=== PATIENT | female | born 1955 | race Two or more races ===

== ENCOUNTER 2019-08-17 14:43 | Inpatient (IN) | payer MEDICAID ==
[~2019-08-17] VITALS: Ht 162.6 cm; Wt 75.3 kg
[2019-08-17] MEDS ORDERED: METF-414 PO (14:57)
[2019-08-17] MEDS ORDERED: BUPR-43 PO (14:57)
[2019-08-17] MEDS ORDERED: LISI-648 PO (14:57)
[2019-08-17] MEDS ORDERED: ATEN-42 PO (14:57)
[2019-08-17] MEDS ORDERED: FAMO20TA8 PO (14:57)
[2019-08-17] MEDS ORDERED: ATOR40TA70 PO (14:57)
[2019-08-17 15:24] LABS: BASOPHILS % 1.1 % (0.0-2.0); EOSINOPHILS % 2.2 % (0.0-5.0); HEMATOCRIT. 42.9 % (36.0-48.0); HEMOGLOBIN. 14.4 g/dL (12.0-16.0); LYMPHOCYTES % 38.4 % (20.0-50.0); MEAN CORPUSCULAR HEMOGLOBIN 30.4 pg (28.0-32.0); MEAN CORPUSCULAR VOLUME 90.6 fL (81.0-99.0); MEAN PLATELET VOLUME 8.1 fl (7.4-10.4); MONOCYTES % 10.2 % (2.0-8.0); NEUTROPHILS % 48.1 % (40.0-76.0); PLATELET 251 x1000/uL (130-400); RED BLOOD CELL COUNT 4.74 mill/uL (4.2-5.4); RED CELL DISTRIBUTION WIDTH 15.2 % (11.6-14.6)
[2019-08-17 15:31] LABS: CHLORIDE 109 mEq/L (98-107)
[2019-08-17 15:35] LABS: ETHANOL BLOOD < 10 mg/dL
[2019-08-17] MEDS ORDERED: HYDRALAZINE 20MG/ML VIAL IV ONE (15:45)
[2019-08-17 18:10] LABS: CLARITY URINE CLEAR (CLEAR); COLOR URINE YELLOW (YELLOW); KETONES URINE NEGATIVE (NEGATIVE); LEUKOCYTE ESTERASE URINE NEGATIVE (NEGATIVE); NITRITE URINE NEGATIVE (NEGATIVE); OCCULT BLOOD URINE NEGATIVE (NEGATIVE); PROTEIN URINE TRACE (NEGATIVE); SPECIFIC GRAVITY URINE 1.018 (1.005-1.030); UROBILINOGEN URINE 0.2 E.U./dL (0.2-1.0)
[2019-08-17 18:44] LABS: *AMPHETAMINES SCREEN URINE NEGATIVE (NEGATIVE); *BARBITURATES SCREEN URINE NEGATIVE (NEGATIVE); *BENZODIAZEPINES SCREEN URINE NEGATIVE (NEGATIVE); *COCAINE SCREEN URINE PRESUMTIVE POSITIVE (NEGATIVE); CANNABINOID URINE SCREEN PRESUMTIVE POSITIVE (NEGATIVE); METHADONE URINE SCREEN NEGATIVE (NEGATIVE); OPIATES URINE SCREEN NEGATIVE (NEGATIVE); PHENCYCLIDINE URINE SCREEN NEGATIVE (NEGATIVE)
[2019-08-17] MEDS ORDERED: NITROGLYCERIN 0.4MG TABLET SL SL PRN (18:45)
[2019-08-17] MEDS ORDERED: ONDANSETRON HCL 4MG/2ML INJ IV PRN (18:45)
[2019-08-17] MEDS ORDERED: GUAIFENESIN 200MG/10ML SUGAR FREE UDC PO PRN (18:45)
[2019-08-17] MEDS ORDERED: ZOLPIDEM TARTRATE 5MG TABLET PO PRN (18:45)
[2019-08-17] MEDS ORDERED: LORAZEPAM 0.5MG TABLET PO PRN (18:45)
[2019-08-17] MEDS ORDERED: ACETAMINOPHEN 325MG TABLET PO PRN (18:45)
[2019-08-17] MEDS ORDERED: MAGNESIUM/ALUMINUM HYDROXIDE/SIMETHICONE 30ML UDC PO PRN (18:45)
[2019-08-17] MEDS ORDERED: IPRATROPIUM/ALBUTEROL 0.5-3(2.5)MG/3ML NEB NEB PRN (18:45)
[2019-08-17] MEDS ORDERED: DEXTROSE 50% WATER 50ML SYRINGE IV PRN (18:45)
[2019-08-17] MEDS ORDERED: CLONIDINE 0.1MG TABLET PO PRN (18:45)
[2019-08-17] MEDS ORDERED: DOCUSATE SODIUM 100MG CAPSULE PO PRN (18:45)
[2019-08-18] VITALS (7 sets, daily range): BP systolic 116–180; BP diastolic 64–88
[2019-08-18] MEDS: KETOROLAC 15MG/ML VIAL IV PRN ×2 (01:55→15:49)
[2019-08-18] MEDS ORDERED: VITA100T MT (03:39)
[2019-08-18] MEDS ORDERED: HYDR12.54 MT (03:39)
[2019-08-18] MEDS ORDERED: MAGN100T3 PO (03:39)
[2019-08-18] MEDS ORDERED: ATOR10TA MT (03:39)
[2019-08-18] MEDS: INSULIN LISPRO 100 UNITS/ML SUBCUT SCH ×4 (06:34→21:00)
[2019-08-18] MEDS: BLOOD SUGAR DIAGNOSTIC STRIP TEST SCH ×4 (06:34→21:00)
[2019-08-18] MEDS ORDERED: ASPIRIN 325MG EC TABLET PO SCH (09:00)
[2019-08-18] MEDS ORDERED: FAMOTIDINE 20MG TABLET PO SCH (09:00)
[2019-08-18] MEDS: CLOPIDOGREL 75MG TABLET PO SCH (11:29)
[2019-08-18] MEDS: AMLODIPINE 10MG TABLET PO SCH (11:31)
[2019-08-18] MEDS: FAMOTIDINE 20MG TABLET PO SCH (11:31)
[2019-08-18] MEDS: LISINOPRIL 20MG TABLET PO SCH ×2 (11:31→21:42)
[2019-08-18] MEDS: ENOXAPARIN 40MG/0.4ML SYR SUBCUT SCH (11:32)
[2019-08-18] MEDS: DEXT 5%/LACTATED RINGERS 1,000 ML IV SCH (11:33)
[2019-08-18] MEDS: NITROGLYCERIN 0.4MG/HR PATCH TOP SCH (15:37)
[2019-08-18 17:42] LABS: T4 FREE 0.96 ng/dL (0.76-1.46)
[2019-08-18 17:50] LABS: FOLIC ACID (FOLATE) SERUM >20 ng/mL ng/mL (>5.38)
[2019-08-18 18:02] LABS: VITAMIN B12 SERUM 515 pg/mL (211-911)
[2019-08-18] MEDS: LIDOCAINE 5% PATCH TOP SCH (18:32)
[2019-08-18] MEDS: ATORVASTATIN CALCIUM 40MG TABLET PO SCH (21:34)
[2019-08-18] MEDS ORDERED: IOHEXOL-350 100 ML BOTTLE ONE (23:29)
[2019-08-19] VITALS: BP 114/60
[2019-08-19] MEDS: DEXT 5%/LACTATED RINGERS 1,000 ML IV SCH (00:01)
[2019-08-19 04:00] VITALS: BP 147/58
[2019-08-19] MEDS: INSULIN LISPRO 100 UNITS/ML SUBCUT SCH ×4 (07:03→20:45)
[2019-08-19] MEDS: BLOOD SUGAR DIAGNOSTIC STRIP TEST SCH ×4 (07:03→20:44)
[2019-08-19 08:00] VITALS: BP 136/62
[2019-08-19] MEDS: ENOXAPARIN 40MG/0.4ML SYR SUBCUT SCH (09:11)
[2019-08-19] MEDS: AMLODIPINE 10MG TABLET PO SCH (09:11)
[2019-08-19] MEDS: CLOPIDOGREL 75MG TABLET PO SCH (09:12)
[2019-08-19] MEDS: LISINOPRIL 20MG TABLET PO SCH ×2 (09:12→20:45)
[2019-08-19] MEDS: FAMOTIDINE 20MG TABLET PO SCH (09:12)
[2019-08-19] MEDS: NITROGLYCERIN 0.4MG/HR PATCH TOP SCH (09:13)
[2019-08-19] MEDS: LIDOCAINE 5% PATCH TOP SCH (09:14)
[2019-08-19 12:00] VITALS: BP 151/72
[2019-08-19 16:00] VITALS: BP 101/63
[2019-08-19 20:00] VITALS: BP 125/65
[2019-08-19] MEDS: ATORVASTATIN CALCIUM 40MG TABLET PO SCH (20:45)
[2019-08-20] VITALS: BP 119/85
[2019-08-20 04:00] VITALS: BP 142/71
[2019-08-20] MEDS: BLOOD SUGAR DIAGNOSTIC STRIP TEST SCH ×4 (06:27→21:23)
[2019-08-20] MEDS: INSULIN LISPRO 100 UNITS/ML SUBCUT SCH ×4 (06:27→21:32)
[2019-08-20 08:17] VITALS: BP 130/96
[2019-08-20] MEDS: CLOPIDOGREL 75MG TABLET PO SCH (08:36)
[2019-08-20] MEDS: AMLODIPINE 10MG TABLET PO SCH (08:36)
[2019-08-20] MEDS: FAMOTIDINE 20MG TABLET PO SCH (08:36)
[2019-08-20] MEDS: ENOXAPARIN 40MG/0.4ML SYR SUBCUT SCH (08:37)
[2019-08-20] MEDS: LISINOPRIL 20MG TABLET PO SCH ×2 (08:37→21:00)
[2019-08-20] MEDS: LIDOCAINE 5% PATCH TOP SCH (10:32)
[2019-08-20] MEDS: NITROGLYCERIN 0.4MG/HR PATCH TOP SCH (11:21)
[2019-08-20 11:54] VITALS: BP 126/71
[2019-08-20 15:46] VITALS: BP 150/81
[2019-08-20 20:00] VITALS: BP 108/67
[2019-08-20] MEDS: ATORVASTATIN CALCIUM 40MG TABLET PO SCH (21:23)
[2019-08-21] VITALS: BP 145/80
[2019-08-21 04:00] VITALS: BP 128/79
[2019-08-21] MEDS: BLOOD SUGAR DIAGNOSTIC STRIP TEST SCH ×2 (06:37→12:20)
[2019-08-21] MEDS: INSULIN LISPRO 100 UNITS/ML SUBCUT SCH ×2 (07:22→12:50)
[2019-08-21 08:40] VITALS: BP 138/82
[2019-08-21] MEDS: CLOPIDOGREL 75MG TABLET PO SCH (09:22)
[2019-08-21] MEDS: NITROGLYCERIN 0.4MG/HR PATCH TOP SCH (09:22)
[2019-08-21] MEDS: FAMOTIDINE 20MG TABLET PO SCH (09:22)
[2019-08-21] MEDS: AMLODIPINE 10MG TABLET PO SCH (09:22)
[2019-08-21] MEDS: LISINOPRIL 20MG TABLET PO SCH (09:22)
[2019-08-21] MEDS: LIDOCAINE 5% PATCH TOP SCH (09:24)
[2019-08-21] MEDS: ENOXAPARIN 40MG/0.4ML SYR SUBCUT SCH (09:25)
[2019-08-21 11:51] VITALS: BP 121/70
[2019-08-21 12:24] VITALS: BP 121/70
[2019-08-21] MEDS ORDERED: DOCUSATE SODIUM 100MG CAPSULE PO SCH (17:00)
[2019-08-21] MEDS ORDERED: POLYETHYLENE GLYCOL 3350 (17GM) 1 DOSE PACK PO SCH (21:00)
== END 2019-08-21 15:18 | DRG 45 ==
LOC: ER 14:43 → 6WST 18:27 → EDBEDREQ 18:37 → EDBEDREQTM 18:37 → ENRESERV 22:57
PROVIDERS: ADMIT Internal Medicine; ATTEND Internal Medicine
DX: I63.81 Other cerebral infarction due to occlusion or stenosis of small artery (principal); E11.65 Type 2 diabetes mellitus with hyperglycemia; G81.94 Hemiplegia, unspecified affecting left nondominant side; G89.29 Other chronic pain; I65.23 Occlusion and stenosis of bilateral carotid arteries; E78.5 Hyperlipidemia, unspecified; I10 Essential (primary) hypertension; F32.9 Major depressive disorder, single episode, unspecified; E78.00 Pure hypercholesterolemia, unspecified; R13.10 Dysphagia, unspecified; K21.9 Gastro-esophageal reflux disease without esophagitis; F14.10 Cocaine abuse, uncomplicated; F12.90 Cannabis use, unspecified, uncomplicated; R29.810 Facial weakness; R47.01 Aphasia; R47.1 Dysarthria and anarthria; M47.816 Spondylosis without myelopathy or radiculopathy, lumbar region; Z86.73 Personal history of transient ischemic attack (TIA), and cerebral infarction without residual deficits; Z82.49 Family history of ischemic heart disease and other diseases of the circulatory system; Z83.3 Family history of diabetes mellitus; Z88.8 Allergy status to other drugs, medicaments and biological substances; Z79.899 Other long term (current) drug therapy
CPT/HCPCS: 36415; 70496; 70498; 70551; 71045; 72070; 72100; 80053; 80061; 80305; 80320; 81003; 82607; 82746; 82962; 83036; 83880; 84439; 84443; 84481; 84484; 85025; 92523; 92610; 93005; 93306; 93880; 93970; 97112; 97116; 97162; 97166; 99285; J0360; J1650; J1815; J1885; J7121; Q9967; G0480

== ENCOUNTER 2019-08-21 15:25 | Inpatient (IN) | payer MEDICAID ==
[~2019-08-21] VITALS: Ht 162.6 cm; Wt 75.3 kg
[~2019-08-21 15:25] MED LIST: ATEN-42 PO; ATOR10TA MT; ATOR40TA70 PO; BUPR-43 PO; FAMO20TA8 PO; HYDR12.54 MT; LISI-648 PO; MAGN100T3 PO; METF-414 PO; VITA100T MT
[2019-08-21] MEDS ORDERED: CLONIDINE 0.1MG TABLET PO PRN (16:15)
[2019-08-21] MEDS ORDERED: IPRATROPIUM/ALBUTEROL 0.5-3(2.5)MG/3ML NEB HHN PRN (16:15)
[2019-08-21] MEDS ORDERED: NITROGLYCERIN 0.4MG TABLET SL SL PRN (16:15)
[2019-08-21] MEDS ORDERED: GUAIFENESIN 200MG/10ML SUGAR FREE UDC PO PRN (16:15)
[2019-08-21] MEDS ORDERED: DEXTROSE 50% WATER 50ML SYRINGE IV PRN (16:15)
[2019-08-21] MEDS ORDERED: ONDANSETRON 4MG ODT PO PRN ×2 (16:15→17:00)
[2019-08-21] MEDS ORDERED: LORAZEPAM 0.5MG TABLET PO PRN (16:15)
[2019-08-21] MEDS: INSULIN LISPRO 100 UNITS/ML SUBCUT SCH ×2 (17:00→20:53)
[2019-08-21] MEDS: DOCUSATE SODIUM 100MG CAPSULE PO SCH (17:00)
[2019-08-21 17:01] VITALS: BP 123/57
[2019-08-21] MEDS: BLOOD SUGAR DIAGNOSTIC STRIP TEST SCH ×2 (17:31→20:53)
[2019-08-21 18:54] VITALS: BP 123/57
[2019-08-21 20:00] VITALS: BP 141/60
[2019-08-21] MEDS: POLYETHYLENE GLYCOL 3350 (17GM) 1 DOSE PACK PO SCH (20:21)
[2019-08-21] MEDS: ATORVASTATIN CALCIUM 40MG TABLET PO SCH (20:45)
[2019-08-21] MEDS: LISINOPRIL 20MG TABLET PO SCH (20:45)
[2019-08-22] MEDS: MAGNESIUM/ALUMINUM HYDROXIDE/SIMETHICONE 30ML UDC PO PRN (03:03)
[2019-08-22] MEDS: BLOOD SUGAR DIAGNOSTIC STRIP TEST SCH ×4 (06:55→21:05)
[2019-08-22 07:07] LABS: CHLORIDE 105 mEq/L (98-107)
[2019-08-22 07:10] LABS: BASOPHILS % 0.5 % (0.0-2.0); EOSINOPHILS % 5.6 % (0.0-5.0); HEMATOCRIT. 41.1 % (36.0-48.0); HEMOGLOBIN. 13.8 g/dL (12.0-16.0); LYMPHOCYTES % 34.8 % (20.0-50.0); MEAN CORPUSCULAR HEMOGLOBIN 29.9 pg (28.0-32.0); MEAN CORPUSCULAR VOLUME 89.2 fL (81.0-99.0); MEAN PLATELET VOLUME 7.9 fl (7.4-10.4); MONOCYTES % 9.7 % (2.0-8.0); NEUTROPHILS % 49.4 % (40.0-76.0); PLATELET 246 x1000/uL (130-400); RED CELL DISTRIBUTION WIDTH 14.6 % (11.6-14.6)
[2019-08-22 08:00] VITALS: BP 107/63
[2019-08-22] MEDS: ENOXAPARIN 40MG/0.4ML SYR SUBCUT SCH (08:45)
[2019-08-22] MEDS: LIDOCAINE 5% PATCH TOP SCH (08:46)
[2019-08-22] MEDS: DOCUSATE SODIUM 100MG CAPSULE PO SCH ×2 (08:46→16:46)
[2019-08-22] MEDS: INSULIN LISPRO 100 UNITS/ML SUBCUT SCH ×4 (08:47→21:12)
[2019-08-22] MEDS: CLOPIDOGREL 75MG TABLET PO SCH (08:47)
[2019-08-22] MEDS: FAMOTIDINE 20MG TABLET PO SCH (08:47)
[2019-08-22] MEDS: AMLODIPINE 10MG TABLET PO SCH (08:47)
[2019-08-22] MEDS: LISINOPRIL 20MG TABLET PO SCH ×2 (08:47→21:00)
[2019-08-22] MEDS: NITROGLYCERIN 0.4MG/HR PATCH TOP SCH (09:00)
[2019-08-22 20:00] VITALS: BP 118/67
[2019-08-22] MEDS: POLYETHYLENE GLYCOL 3350 (17GM) 1 DOSE PACK PO SCH (21:00)
[2019-08-22] MEDS: ATORVASTATIN CALCIUM 40MG TABLET PO SCH (21:04)
[2019-08-23] MEDS: ACETAMINOPHEN 325MG TABLET PO PRN (03:03)
[2019-08-23 05:10] VITALS: BP 175/93
[2019-08-23] MEDS: BLOOD SUGAR DIAGNOSTIC STRIP TEST SCH ×4 (05:32→21:00)
[2019-08-23] MEDS: INSULIN LISPRO 100 UNITS/ML SUBCUT SCH ×4 (05:32→21:38)
[2019-08-23 06:29] VITALS: BP 127/70
[2019-08-23] MEDS: KETOROLAC 15MG/ML VIAL IV PRN (07:45)
[2019-08-23 07:58] VITALS: BP 138/65
[2019-08-23] MEDS: LIDOCAINE 5% PATCH TOP SCH ×2 (08:19→09:00)
[2019-08-23] MEDS: CLOPIDOGREL 75MG TABLET PO SCH (08:20)
[2019-08-23] MEDS: AMLODIPINE 10MG TABLET PO SCH (08:20)
[2019-08-23] MEDS: ENOXAPARIN 40MG/0.4ML SYR SUBCUT SCH (08:20)
[2019-08-23] MEDS: FAMOTIDINE 20MG TABLET PO SCH (08:21)
[2019-08-23] MEDS: DOCUSATE SODIUM 100MG CAPSULE PO SCH ×2 (08:21→17:00)
[2019-08-23] MEDS: LISINOPRIL 20MG TABLET PO SCH ×2 (08:21→21:33)
[2019-08-23] MEDS: NITROGLYCERIN 0.4MG/HR PATCH TOP SCH (09:19)
[2019-08-23 20:00] VITALS: BP 121/49
[2019-08-23] MEDS: POLYETHYLENE GLYCOL 3350 (17GM) 1 DOSE PACK PO SCH (21:00)
[2019-08-23] MEDS: ATORVASTATIN CALCIUM 40MG TABLET PO SCH (21:32)
[2019-08-24] MEDS: ZOLPIDEM TARTRATE 5MG TABLET PO PRN (00:32)
[2019-08-24] MEDS: MAGNESIUM/ALUMINUM HYDROXIDE/SIMETHICONE 30ML UDC PO PRN (05:03)
[2019-08-24] MEDS: BLOOD SUGAR DIAGNOSTIC STRIP TEST SCH ×4 (05:23→20:47)
[2019-08-24] MEDS: INSULIN LISPRO 100 UNITS/ML SUBCUT SCH ×4 (05:24→21:24)
[2019-08-24 08:09] VITALS: BP 124/64
[2019-08-24] MEDS: FAMOTIDINE 20MG TABLET PO SCH (08:34)
[2019-08-24] MEDS: LISINOPRIL 20MG TABLET PO SCH ×2 (08:34→20:37)
[2019-08-24] MEDS: CLOPIDOGREL 75MG TABLET PO SCH (08:34)
[2019-08-24] MEDS: LIDOCAINE 5% PATCH TOP SCH (08:35)
[2019-08-24] MEDS: DOCUSATE SODIUM 100MG CAPSULE PO SCH ×2 (08:35→16:43)
[2019-08-24] MEDS: AMLODIPINE 10MG TABLET PO SCH (08:35)
[2019-08-24] MEDS: ENOXAPARIN 40MG/0.4ML SYR SUBCUT SCH (08:35)
[2019-08-24] MEDS: NITROGLYCERIN 0.4MG/HR PATCH TOP SCH (08:38)
[2019-08-24 16:50] LABS: CLARITY URINE CLEAR (CLEAR); COLOR URINE YELLOW (YELLOW); KETONES URINE NEGATIVE (NEGATIVE); LEUKOCYTE ESTERASE URINE NEGATIVE (NEGATIVE); NITRITE URINE NEGATIVE (NEGATIVE); OCCULT BLOOD URINE NEGATIVE (NEGATIVE); PH URINE 6.5 (4.5-8.0); PROTEIN URINE NEGATIVE (NEGATIVE); SPECIFIC GRAVITY URINE 1.017 (1.005-1.030); UROBILINOGEN URINE 0.2 E.U./dL (0.2-1.0)
[2019-08-24 20:00] VITALS: BP 154/77
[2019-08-24] MEDS: ATORVASTATIN CALCIUM 40MG TABLET PO SCH (20:37)
[2019-08-24] MEDS: POLYETHYLENE GLYCOL 3350 (17GM) 1 DOSE PACK PO SCH (20:38)
[2019-08-24] MEDS: KETOROLAC 15MG/ML VIAL IV PRN (20:42)
[2019-08-25] MEDS: ZOLPIDEM TARTRATE 5MG TABLET PO PRN (00:32)
[2019-08-25] MEDS: BLOOD SUGAR DIAGNOSTIC STRIP TEST SCH ×4 (06:28→20:46)
[2019-08-25] MEDS: INSULIN LISPRO 100 UNITS/ML SUBCUT SCH ×4 (06:28→20:46)
[2019-08-25] MEDS: MAGNESIUM/ALUMINUM HYDROXIDE/SIMETHICONE 30ML UDC PO PRN (06:38)
[2019-08-25 08:00] VITALS: BP 167/83
[2019-08-25] MEDS: LISINOPRIL 20MG TABLET PO SCH ×2 (08:41→20:27)
[2019-08-25] MEDS: CLOPIDOGREL 75MG TABLET PO SCH (08:41)
[2019-08-25] MEDS: FAMOTIDINE 20MG TABLET PO SCH (08:41)
[2019-08-25] MEDS: ENOXAPARIN 40MG/0.4ML SYR SUBCUT SCH (08:42)
[2019-08-25] MEDS: DOCUSATE SODIUM 100MG CAPSULE PO SCH ×3 (08:42→16:30)
[2019-08-25] MEDS: AMLODIPINE 10MG TABLET PO SCH (08:42)
[2019-08-25] MEDS: LIDOCAINE 5% PATCH TOP SCH (08:42)
[2019-08-25] MEDS: NITROGLYCERIN 0.4MG/HR PATCH TOP SCH (11:23)
[2019-08-25 13:52] LABS: BASOPHILS % 0.6 % (0.0-2.0); EOSINOPHILS % 4.1 % (0.0-5.0); HEMATOCRIT. 40.5 % (36.0-48.0); HEMOGLOBIN. 13.6 g/dL (12.0-16.0); LYMPHOCYTES % 41.7 % (20.0-50.0); MEAN CORPUSCULAR HEMOGLOBIN 30.2 pg (28.0-32.0); MEAN CORPUSCULAR VOLUME 90.1 fL (81.0-99.0); MEAN PLATELET VOLUME 8.1 fl (7.4-10.4); MONOCYTES % 6.5 % (2.0-8.0); NEUTROPHILS % 47.1 % (40.0-76.0); PLATELET 251 x1000/uL (130-400); RED CELL DISTRIBUTION WIDTH 14.6 % (11.6-14.6)
[2019-08-25 14:06] LABS: PHOSPHORUS 3.1 mg/dL (2.5-4.9)
[2019-08-25 14:17] LABS: FOLIC ACID (FOLATE) SERUM 15.5 ng/mL (>5.38)
[2019-08-25] MEDS: ACETAMINOPHEN 325MG TABLET PO PRN (15:22)
[2019-08-25] MEDS: HYDROCODONE/ACETAMINOPHEN 5/325MG TABLET PO PRN ×2 (16:32→20:26)
[2019-08-25] MEDS: FLUTICASONE PROPIONATE 50MCG/SPRAY BOTTLE BOTHNSTRLS PRN (16:32)
[2019-08-25 20:00] VITALS: BP 141/66
[2019-08-25] MEDS: ATORVASTATIN CALCIUM 40MG TABLET PO SCH (20:27)
[2019-08-25] MEDS: POLYETHYLENE GLYCOL 3350 (17GM) 1 DOSE PACK PO SCH (20:28)
[2019-08-26] MEDS: ZOLPIDEM TARTRATE 5MG TABLET PO PRN ×2 (00:27→22:49)
[2019-08-26] MEDS: BLOOD SUGAR DIAGNOSTIC STRIP TEST SCH ×4 (05:49→20:35)
[2019-08-26 08:29] VITALS: BP 158/71
[2019-08-26] MEDS: FAMOTIDINE 20MG TABLET PO SCH (08:55)
[2019-08-26] MEDS: AMLODIPINE 10MG TABLET PO SCH (08:56)
[2019-08-26] MEDS: CLOPIDOGREL 75MG TABLET PO SCH (08:56)
[2019-08-26] MEDS: LISINOPRIL 20MG TABLET PO SCH ×2 (08:56→20:34)
[2019-08-26] MEDS: CYANOCOBALAMIN 1000MCG/ML VIAL IM SCH (08:56)
[2019-08-26] MEDS: DOCUSATE SODIUM 100MG CAPSULE PO SCH ×2 (08:56→17:00)
[2019-08-26] MEDS: ENOXAPARIN 40MG/0.4ML SYR SUBCUT SCH (08:57)
[2019-08-26] MEDS: INSULIN LISPRO 100 UNITS/ML SUBCUT SCH ×4 (09:00→20:50)
[2019-08-26] MEDS: LIDOCAINE 5% PATCH TOP SCH (09:09)
[2019-08-26] MEDS: NITROGLYCERIN 0.4MG/HR PATCH TOP SCH (09:10)
[2019-08-26] MEDS: LORATADINE 10MG TABLET PO SCH (13:30)
[2019-08-26] MEDS: FLUTICASONE PROPIONATE 50MCG/SPRAY BOTTLE BOTHNSTRLS PRN (15:24)
[2019-08-26] MEDS: HYDROCODONE/ACETAMINOPHEN 5/325MG TABLET PO PRN (18:36)
[2019-08-26 20:00] VITALS: BP 123/66
[2019-08-26] MEDS: POLYETHYLENE GLYCOL 3350 (17GM) 1 DOSE PACK PO SCH (20:32)
[2019-08-26] MEDS: ATORVASTATIN CALCIUM 40MG TABLET PO SCH (20:34)
[2019-08-27] MEDS: BLOOD SUGAR DIAGNOSTIC STRIP TEST SCH ×4 (06:17→20:02)
[2019-08-27] MEDS: INSULIN LISPRO 100 UNITS/ML SUBCUT SCH ×4 (06:20→20:05)
[2019-08-27] MEDS: FLUTICASONE PROPIONATE 50MCG/SPRAY BOTTLE BOTHNSTRLS PRN (06:23)
[2019-08-27 07:57] VITALS: BP 136/75
[2019-08-27] MEDS: CYANOCOBALAMIN 1000MCG/ML VIAL IM SCH (08:28)
[2019-08-27] MEDS: DOCUSATE SODIUM 100MG CAPSULE PO SCH ×3 (08:28→17:00)
[2019-08-27] MEDS: AMLODIPINE 10MG TABLET PO SCH (08:29)
[2019-08-27] MEDS: LORATADINE 10MG TABLET PO SCH (08:29)
[2019-08-27] MEDS: ENOXAPARIN 40MG/0.4ML SYR SUBCUT SCH (08:29)
[2019-08-27] MEDS: FAMOTIDINE 20MG TABLET PO SCH (08:29)
[2019-08-27] MEDS: CLOPIDOGREL 75MG TABLET PO SCH (08:29)
[2019-08-27] MEDS: LISINOPRIL 20MG TABLET PO SCH ×2 (08:29→20:47)
[2019-08-27] MEDS: HYDROCODONE/ACETAMINOPHEN 5/325MG TABLET PO PRN ×2 (09:00→19:19)
[2019-08-27] MEDS: NITROGLYCERIN 0.4MG/HR PATCH TOP SCH (09:01)
[2019-08-27] MEDS: LIDOCAINE 5% PATCH TOP SCH (09:02)
[2019-08-27 20:00] VITALS: BP 144/63
[2019-08-27] MEDS: POLYETHYLENE GLYCOL 3350 (17GM) 1 DOSE PACK PO SCH (20:43)
[2019-08-27] MEDS: ATORVASTATIN CALCIUM 40MG TABLET PO SCH (20:47)
[2019-08-28] MEDS: ZOLPIDEM TARTRATE 5MG TABLET PO PRN (00:35)
[2019-08-28] MEDS: BLOOD SUGAR DIAGNOSTIC STRIP TEST SCH ×2 (06:02→11:39)
[2019-08-28] MEDS: INSULIN LISPRO 100 UNITS/ML SUBCUT SCH ×2 (06:06→11:39)
[2019-08-28 07:51] VITALS: BP 134/64
[2019-08-28] MEDS: NITROGLYCERIN 0.4MG/HR PATCH TOP SCH (08:21)
[2019-08-28] MEDS: DOCUSATE SODIUM 100MG CAPSULE PO SCH (08:21)
[2019-08-28] MEDS: AMLODIPINE 10MG TABLET PO SCH (08:21)
[2019-08-28] MEDS: CYANOCOBALAMIN 1000MCG/ML VIAL IM SCH (08:22)
[2019-08-28] MEDS: LISINOPRIL 20MG TABLET PO SCH (08:22)
[2019-08-28] MEDS: CLOPIDOGREL 75MG TABLET PO SCH (08:22)
[2019-08-28] MEDS: LORATADINE 10MG TABLET PO SCH (08:22)
[2019-08-28] MEDS: FAMOTIDINE 20MG TABLET PO SCH (08:22)
[2019-08-28] MEDS: LIDOCAINE 5% PATCH TOP SCH (08:23)
[2019-08-28] MEDS: ENOXAPARIN 40MG/0.4ML SYR SUBCUT SCH (08:23)
[2019-08-28 10:02] VITALS: BP 134/64
[2019-08-28 10:19] VITALS: BP 134/64
[2019-08-28] MEDS: HYDROCODONE/ACETAMINOPHEN 5/325MG TABLET PO PRN (10:19)
[2019-08-28] MEDS: FLUTICASONE PROPIONATE 50MCG/SPRAY BOTTLE BOTHNSTRLS PRN (10:23)
[2019-08-28] MEDS ORDERED: HYDROCODONE/ACETAMINOPHEN 5/325MG TABLET PO PRN (12:45)
[2019-08-29 15:10] LABS: 25-HYDROXY VITAMIN D3 17 ng/mL (.)
== END 2019-08-28 15:18 | disposition home health service (06) | DRG 58 ==
PROVIDERS: ADMIT Physical Medicine & Rehabilitation Spinal Cord Injury Medicine; ATTEND Internal Medicine
DX: I69.354 Hemiplegia and hemiparesis following cerebral infarction affecting left non-dominant side (principal); I63.81 Other cerebral infarction due to occlusion or stenosis of small artery; N17.9 Acute kidney failure, unspecified; E11.65 Type 2 diabetes mellitus with hyperglycemia; R13.10 Dysphagia, unspecified; I10 Essential (primary) hypertension; K21.9 Gastro-esophageal reflux disease without esophagitis; E78.00 Pure hypercholesterolemia, unspecified; E78.5 Hyperlipidemia, unspecified; E78.1 Pure hyperglyceridemia; F17.210 Nicotine dependence, cigarettes, uncomplicated; F32.9 Major depressive disorder, single episode, unspecified; F80.9 Developmental disorder of speech and language, unspecified; G89.29 Other chronic pain; R29.810 Facial weakness; Z79.02 Long term (current) use of antithrombotics/antiplatelets; Z82.49 Family history of ischemic heart disease and other diseases of the circulatory system; Z83.3 Family history of diabetes mellitus; J30.9 Allergic rhinitis, unspecified; Z91.14 Patient's other noncompliance with medication regimen; F14.10 Cocaine abuse, uncomplicated; F12.10 Cannabis abuse, uncomplicated; M54.5 Low back pain
CPT/HCPCS: 36415; 80048; 80053; 81003; 82306; 82607; 82728; 82746; 82962; 83540; 83550; 83735; 84100; 84134; 84443; 85025; 92523; 92610; 93970; 97110; 97112; 97116; 97162; 97166; 97530; 97535; J1650; J1815; J1885; J3420; Q0162